=== PATIENT | male | born 1955 | race Caucasian/White ===

== ENCOUNTER 2025-02-23 11:52 | Day surgery (SDC) | payer MEDICARE, OTHER, SELFPAY ==
--- NOTE | 2025-02-23 07:26 | ITS.CL.IMPLP ---
Head Sulfide Operator - Implant Loop
Implant Loop
Procedure Report:
LINQ IMPLANTED LOOP RECORDER
Date of Procedure: February 23, 2025
Primary Care Physician: Dr. Madhavi Martinez
Primary Field Rep: Dr. Junior Chung
Proocedure performed:
1. Implant LINQ loop recorder
Indication for procedure: A-fib monitoring post stroke
Description of procedure: After informed consent was obtained,'time out' was called and confirmed, the patient was prepped and draped in a sterile fashion. Lidocaine with epi was used for local anesthesia. A punch incision was made in the fourth
intercostal space midclavicular line. The LINQ device was placed using the placement tool. A single 3-0 absorbable stitch was placed to close the skin track. The punch site was covered with steri-strips.
Complications: None
CONCLUSIONS/RECOMMENDATIONS:
1. Successful placement of LINQ loop recorder
2. Follow-up as scheduled.
== END 2025-02-23 13:28 | disposition home or self-care (01) ==
LOC: CATH 11:52
PROVIDERS: ATTENDING PHYSICIAN Internal Medicine Cardiovascular Disease; FAMILY PHYSICIAN Family Medicine
DX: Z09 Encounter for follow-up examination after completed treatment for conditions other than malignant neoplasm (principal); Z86.73 Personal history of transient ischemic attack (TIA), and cerebral infarction without residual deficits; K21.9 Gastro-esophageal reflux disease without esophagitis
CPT/HCPCS: 33285; C1764